=== PATIENT | female | born 1945 | race Caucasian/White ===

== ENCOUNTER 2017-01-31 10:12 | Emergency (ER) | payer MEDICARE ==
[2017-01-31 10:45] LABS: URINE BILIRUBIN NEGATIVE (NEGATIVE); URINE BLOOD NEGATIVE (NEGATIVE); URINE GLUCOSE (UA) NORMAL (NORMAL); URINE KETONE NEGATIVE (NEGATIVE); URINE LEUKOCYTE ESTERASE TRACE (NEGATIVE); URINE NITRATE NEGATIVE (NEGATIVE); URINE PROTEIN NEGATIVE (NEGATIVE)
[2017-01-31 10:57] LABS: BASO % 0.2 % (0.1-1.2); EOS # 0.1 10_X3_uL (0.0-0.4); EOS % 0.9 % (0.7-5.8); GRAN # 3.5 10_X3_uL (1.6-6.1); GRAN % 55.5 % (34.0-71.1); HEMATOCRIT 40.5 % (34-45); HEMOGLOBIN 13.8 g/dL (11.2-15.7); LYMPH # 2.4 10_X3_uL (1.2-3.7); LYMPH % 38.2 % (19.3-51.7); MEAN CORPUSCULAR HEMOGLOBIN 30.9 pg (27.0-33.0); MEAN CORPUSCULAR HGB CONC 34.1 g/dL (32.0-36.0); MEAN CORPUSCULAR VOLUME 90.6 fL (79-95); MONO # 0.3 10_X3_uL (0.2-0.9); MONO % 5.2 % (4.7-12.5); PLATELET COUNT 233 x10_3/uL (182-369); RED BLOOD COUNT 4.47 x10_6/uL (3.9-5.2); RED CELL DISTRIBUTION WIDTH 13.8 % (11.7-14.4); WHITE BLOOD COUNT 6.4 x10_3/uL (4.0-10.0)
[2017-01-31 11:00] LABS: URINE BACTERIA TRACE (NONE SEEN); URINE RENAL EPITHELIAL CELLS 0-10 /[HPF] (NONE SEEN); URINE SQUAMOUS EPITHELIAL CELL 0-10 /[HPF] (NONE SEEN); URINE WBC 0-5 /[HPF] (0-5)
[2017-01-31 11:13] LABS: ALBUMIN 4.6 gm/dL (3.4-5.0); ALKALINE PHOSPHATASE 52 U/L (50-136); ALT/SGPT 17 U/L (3.5-33.9); AST/SGOT 17 U/L (7.04-26.96); BILIRUBIN,TOTAL 0.62 mg/dL (0.0-1.0); BLOOD UREA NITROGEN 14 mg/dL (7-18); CARBON DIOXIDE 25 mmol/L (21-32); CREATININE 0.8 mg/dL (0.6-1.3); GLUCOSE,RANDOM 131 mg/dL (70-99); POTASSIUM 4.3 mmol/L (3.5-5.1); SODIUM 141 mmol/L (136-145); TOTAL PROTEIN 7.1 gm/dL (6.4-8.2)
== END 2017-01-31 12:53 | disposition home or self-care (01) ==
LOC: ER 10:12
PROVIDERS: General Practice
DX: K59.00 Constipation, unspecified (principal); R10.31 Right lower quadrant pain; R10.32 Left lower quadrant pain; K21.9 Gastro-esophageal reflux disease without esophagitis; I12.9 Hypertensive chronic kidney disease with stage 1 through stage 4 chronic kidney disease, or unspecified chronic kidney disease; N18.9 Chronic kidney disease, unspecified; K58.9 Irritable bowel syndrome, unspecified; Z79.82 Long term (current) use of aspirin; Z79.899 Other long term (current) drug therapy; Z79.4 Long term (current) use of insulin
CPT/HCPCS: 36415; 80053; 81001; 85025; 99070; 99284; 99284-25